=== PATIENT | female | born 1965 | race Caucasian/White ===

== ENCOUNTER → 2021-09-10 | Day surgery (SDC) | payer OTHER ==
[~2021-09-10] VITALS: Ht 162.6 cm; Wt 89.8 kg
[~2021-09-10] MED LIST: ACETAMINOPHEN500 M1 PO; LOSARTAN POTASS50 MG PO; MOTRIN600 MG PO; PROPRANOLOL HCL60 MG PO; VITAMIN D350 MC4 PO
== END | disposition home or self-care (01) ==
LOC: FAS 05:56
DX: C80.1 Malignant (primary) neoplasm, unspecified (principal); C77.2 Secondary and unspecified malignant neoplasm of intra-abdominal lymph nodes; Z90.710 Acquired absence of both cervix and uterus; Z98.51 Tubal ligation status; Z80.0 Family history of malignant neoplasm of digestive organs; Z72.89 Other problems related to lifestyle; Z87.891 Personal history of nicotine dependence
CPT/HCPCS: 71045; 76000; 93005; C1788; J0690; J1644; J2001; J2250; J2405; J2704; J3010; J7120